=== PATIENT | female | born 1955 | race African-American/Black ===

== ENCOUNTER 2017-06-16 08:22 | Emergency (ER) | payer OTHER ==
[2017-06-16 09:07] LABS: Actual Bicarbonate (HCO3a) 32.9 mEq/L (22-26); Base Excess (BEa) 7.7 mEq/L (0 (+/-) 2.5); Hematocrit-ABG 31.9 % (36.0-47.0); Hemoglobin (Hb) 8.9 g/dL (12.0-16.0); O2 Tension (PaO2) 50.1 mmHg (80.0-100.0); pH, Arterial 7.44 (7.35-7.45)
[2017-06-16 09:08] LABS: Calcium, Ionized 1.2 mmol/L (1.12-1.30); Puncture Site RBA
[2017-06-16] MEDS ORDERED: Aspirin 325 MG TAB ONE (09:30)
[2017-06-16 11:38] LABS: Bacteria/HPF 4+ HPF (None Seen); Bilirubin Negative (Negative); Blood, Urine Negative (Negative); Clarity CLOUDY (Clear); Glucose, Urine (Dipstick) Negative (Negative); Hyaline Casts/LPF 0-3 HYALINE CAST LPF (0-3 Hyaline); Leukocyte Moderate (Negative); Nitrite Positive (Negative); Pathc Cast-AUWi Flag 0.14 (0-2.49); Protein, Urine (Dipstick) Negative (Neg-Trace); RBC/HPF None Seen HPF (0-3); Specific Gravity, Urine 1.011 (1.002-1.036); Squamous Epithelial None Seen HPF (0-3); WBC/HPF 21-50 HPF (0-3)
== END 2017-06-16 13:17 | disposition home or self-care (01) ==
LOC: ERS 08:22
DX: S39.012A Strain of muscle, fascia and tendon of lower back, initial encounter (principal); N39.0 Urinary tract infection, site not specified; E03.9 Hypothyroidism, unspecified; E11.9 Type 2 diabetes mellitus without complications; E66.9 Obesity, unspecified; D64.9 Anemia, unspecified; J45.909 Unspecified asthma, uncomplicated; I10 Essential (primary) hypertension; Z85.42 Personal history of malignant neoplasm of other parts of uterus; Z87.891 Personal history of nicotine dependence; X50.0XXA Overexertion from strenuous movement or load, initial encounter
CPT/HCPCS: 51701; 81003; 81015; 82805; 87077; 87086; 87186; J7620